=== PATIENT | female | born 1980 ===

== ENCOUNTER 2024-04-27 15:44 | Emergency (ER) | payer BC ==
[2024-04-27 16:32] LABS: APPEARANCE,URINE CLOUDY; BILIRUBIN,URINE NEGATIVE (NEGATIVE); COLOR,URINE RED; GLUCOSE,URINE NEGATIVE (NEGATIVE); KETONES,URINE NEGATIVE (NEGATIVE); LEUKOCYTE ESTERASE,URINE TRACE (NEGATIVE); NITRITE,URINE NEGATIVE (NEGATIVE); OCCULT BLOOD,URINE MODERATE (NEGATIVE); PROTEIN,URINE TRACE mg/dL (NEGATIVE); UROBILINOGEN,URINE 0.2 EU/dL (<2.0)
[2024-04-27 16:40] LABS: BASOPHILS ABSOLUTE AUTO 0.04 K/uL (0.00-0.20); BASOPHILS PERCENT AUTO 0.5 % (0.0-1.0); HEMATOCRIT 34.3 % (37.0-47.0); HEMOGLOBIN 10.8 g/dL (12.0-16.0); IMMATURE GRAN ABSOLUTE AUTO 0.02 K/uL (0.00-0.05); IMMATURE GRAN PERCENT AUTO 0.2 % (0.0-0.4); LYMPHOCYTES ABSOLUTE AUTO 0.99 K/uL (1.00-4.80); LYMPHOCYTES PERCENT AUTO 11.8 % (24.0-44.0); MEAN CORPUSCULAR HEMOGLOBIN 23.7 pg (28.0-32.0); MEAN CORPUSCULAR HGB CONC 31.5 g/dL (32.0-36.0); MEAN CORPUSCULAR VOLUME 75.2 fL (83.0-99.0); MEAN PLATELET VOLUME 9.3 fL (9.4-12.3); MONOCYTES ABSOLUTE AUTO 0.64 K/uL (0.00-0.80); MONOCYTES PERCENT AUTO 7.6 % (0.0-8.0); NEUTROPHILS ABSOLUTE AUTO 6.69 K/uL (1.80-7.70); NEUTROPHILS PERCENT AUTO 79.9 % (41.0-71.0); PLATELET COUNT,PLT 435 K/uL (150-400); RED BLOOD CELL COUNT 4.56 M/uL (4.10-5.30); WHITE BLOOD CELL COUNT,WBC 8.38 K/uL (3.9-11.3)
[2024-04-27] MEDS: Sodium Chloride 0.9% 1,000 ML IV STA (16:46)
[2024-04-27] MEDS: Ondansetron 4 MG/2 ML SDV IVPUSH STA (16:47)
[2024-04-27] MEDS: Morphine 4 MG/ML Syringe IVPUSH STA (16:47)
[2024-04-27 16:48] LABS: BACTERIA,URINE FEW (NEGATIVE); EPITHELIAL CELLS,URINE FEW (NONE-FEW); RBC,URINE TOO NUMEROUS TO CT (0-2/HPF); WBC,URINE 0-4 (0-5/HPF)
[2024-04-27 16:56] LABS: A/G RATIO 0.9 (0.9-1.6); ALBUMIN 3.4 g/dL (3.4-5.0); BILIRUBIN TOTAL 0.1 mg/dL (0.2-1.0); CALCIUM 8.6 mg/dL (8.5-10.1); CARBON DIOXIDE,CO2 23.9 mmol/L (21.0-32.0); CREATININE 0.9 mg/dL (0.6-1.0); EST CRCL DRUG DOSING (CG) 82.14 mL/min; POTASSIUM,K 3.7 mmol/L (3.5-5.1); PROTEIN TOTAL,TP 7.2 g/dL (6.4-8.2)
[2024-04-27 16:56] LABS: INR < 0.93 (0.86-1.11)
[2024-04-27] MEDS: Iopamidol 755 MG/ML 500 ML Multipack Bottle IVPUSH STA (18:32)
== END 2024-04-27 21:38 | disposition home or self-care (01) ==
LOC: MW.ED 15:44
DX: N83.201 Unspecified ovarian cyst, right side (principal); D50.9 Iron deficiency anemia, unspecified; Z91.018 Allergy to other foods; Z88.8 Allergy status to other drugs, medicaments and biological substances; Z88.0 Allergy status to penicillin; Z79.899 Other long term (current) drug therapy; Z90.49 Acquired absence of other specified parts of digestive tract; Z75.8 Other problems related to medical facilities and other health care
CPT/HCPCS: 36415; 74177; 76830; 80053; 81001; 83690; 84703; 85025; 85610; 87086; 96361; 96374; 96375; 99284; J2270; J2405; J7030; Q9967; 81003